=== PATIENT | female | born 1990 | race African-American/Black ===

== ENCOUNTER 2024-02-02 02:15 | Emergency (ER) | payer OTHER ==
[2024-02-02 02:26] VITALS: BP 109/76; PULSE 86; RESP 20; TEMP 98; BMI 31.4
[2024-02-02 03:54] LABS: URINE APPEARANCE CLEAR; URINE BILIRUBIN NEGATIVE (NEGATIVE); URINE COLOR YELLOW; URINE GLUCOSE (UA) NEGATIVE (NEGATIVE); URINE KETONE NEGATIVE (NEGATIVE); URINE LEUK ESTERASE NEGATIVE (NEGATIVE); URINE NITRITE NEGATIVE (NEGATIVE); URINE PROTEIN NEGATIVE (NEGATIVE); URINE UROBILINOGEN 0.2 mg/dL (0.2-1.0)
[2024-02-02 03:57] LABS: HCG,QUALITATIVE URINE Negative
== END 2024-02-02 05:04 | disposition left against medical advice (07) ==
LOC: JER 02:15
DX: R10.30 Lower abdominal pain, unspecified (principal)
CPT/HCPCS: 81003; 84703; 87086; 99283-25

== ENCOUNTER 2024-02-17 20:53 | Emergency (ER) | payer OTHER ==
[2024-02-17 21:00] VITALS: BP 128/92; RESP 18; TEMP 98.7; BMI 30.7
[2024-02-17] MEDS ORDERED: ACETAMINOPHEN 325 MG TABLET (FP) ONE (21:45)
[2024-02-17] MEDS: ACETAMINOPHEN 325 MG TABLET (FP) PO ONE (21:52)
[2024-02-17 22:22] VITALS: PULSE 80
== END 2024-02-18 00:06 | disposition home or self-care (01) ==
LOC: JER 20:53 → JERFT 20:53 → JER 02-18 00:06
DX: S40.812A Abrasion of left upper arm, initial encounter (principal); S80.812A Abrasion, left lower leg, initial encounter; V23.1 Motorcycle passenger injured in collision with car, pick-up truck or van in nontraffic accident; Y92.410 Unspecified street and highway as the place of occurrence of the external cause
CPT/HCPCS: 93005; 93010; 99283-25